=== PATIENT | male | born 1955 | race Caucasian/White ===

== ENCOUNTER 2023-08-12 16:38 | Inpatient (IN) | payer MEDICARE, OTHER ==
[~2023-08-12] VITALS: Ht 157.5 cm; Wt 78.0 kg
[2023-08-12] MEDS ORDERED: IPRATROPIUM 0.5MG/ALBUTEROL 2.5MG INH SOL UD 3ML (DUONEB) NEB ONE ×2 (17:25→17:30)
[2023-08-12] MEDS ORDERED: DOXY-443 (17:30)
[2023-08-12] MEDS ORDERED: PRED20TA (17:30)
[2023-08-12] MEDS ORDERED: ALBU8.5H (17:30)
[2023-08-12] MEDS ORDERED: IPRATROPIUM 0.5MG/ALBUTEROL 2.5MG INH SOL UD 3ML (DUONEB) NEB PRN (17:35)
[2023-08-12 17:36] LABS: BASO % 0.1 % (0.0-1.0); EOS % 0.2 % (0.0-3.0); HEMATOCRIT 42.5 % (42.0-52.0); HEMOGLOBIN 14.7 g/dl (13.5-17.5); LYMPH # 0.5 10^3/uL (1.5-5.0); LYMPH % 4.7 % (24.0-44.0); MEAN CORPUSCULAR HEMOGLOBIN 35.1 pg (27.0-33.0); MEAN CORPUSCULAR HGB CONC 34.6 g/dl (32.0-36.5); MEAN CORPUSCULAR VOLUME 101.4 fl (80.0-96.0); MONO # 1.4 10^3/uL (0.0-0.8); MONO % 14.7 % (2.0-8.0); NEUTROPHILS # 7.7 10^3/uL (1.5-8.5); NEUTROPHILS % 79.7 % (36.0-66.0); PLATELET COUNT, AUTOMATED 142 10^3/uL (150-450); RED BLOOD COUNT 4.19 10^6/uL (4.30-6.10); WHITE BLOOD COUNT 9.7 10^3/uL (4.0-10.0)
[2023-08-12 17:43] LABS: ABG BASE EXCESS -3.7 (-2.0-2.0); ABG HCO3 19.7 MMOL/L (22.0-26.0); ABG O2 SATURATION 95.6 % (95.0-99.0); ABG PARTIAL PRESSURE CO2 31.6 mmHg (35.0-45.0); ABG PARTIAL PRESSURE O2 78.3 mmHg (75.0-100.0); ABG STANDARD HCO3 21.4 MMOL/L. (22.0-26.0); ABG TOTAL CO2 20.7 MMOL/L (23.0-31.0); ABG pH (ARTERIAL) 7.413 UNITS (7.350-7.450)
[2023-08-12] MEDS: LEVALBUTEROL 1.25MG 0.5ML CONCENTRATE NEB NEB ONE (17:43)
[2023-08-12 17:49] LABS: ALBUMIN 3.1 G/DL (3.2-5.2); ALKALINE PHOSPHATASE 92 U/L (46-116); ALT/SGPT 40 U/L (7.0-40); AST/SGOT 39 U/L (<34); BILIRUBIN,DIRECT 0.6 MG/DL (<0.4); BILIRUBIN,TOTAL 1.1 MG/DL (0.3-1.2); BLOOD UREA NITROGEN 16 MG/DL (9-23); CALCIUM LEVEL 8.5 MG/DL (8.3-10.6); CARBON DIOXIDE LEVEL 22 MMOL/L (20-31); CHLORIDE LEVEL 96 MMOL/L (98-107); CK-MB VALUE MASS 7.5 NG/ML (<3.6); CPK CREATINE PHOSPHOKINASE 524 U/L (46-171); CREATININE FOR GFR 0.81 MG/DL (0.70-1.30); GLOMERULAR FILTRATION RATE > 60.0 (>49); GLUCOSE, FASTING 194 MG/DL (74-106); INR 1.37; MB/CK RELATIVE INDEX 1.43 (< OR =4); POTASSIUM SERUM 4.6 MMOL/L (3.5-5.1); PROTHROMBIN TIME 16.5 SECONDS (12.5-14.5); SODIUM LEVEL 125 MMOL/L (136-145); TOTAL PROTEIN 6.7 G/DL (5.7-8.2)
[2023-08-12 17:49] LABS: C REACTIVE PROTEIN QUANTITATIV 7.2 MG/DL (<1.0); MAGNESIUM LEVEL 2.1 MG/DL (1.8-2.4)
[2023-08-12 17:51] LABS: THYROID STIMULATING HORMONE 1.594 uIU/ML (0.55-4.78)
[2023-08-12 17:58] LABS: PROCALCITONIN 0.07 ng/ml
[2023-08-12] MEDS: ASPIRIN 81MG CHEW TABLET PO ONE (17:59)
[2023-08-12] MEDS: methylPREDNISolone 125MG 2ML VIAL IV ONE (18:00)
[2023-08-12] MEDS: NITROGLYCERIN 2% OINT 1 GM *U/D* PKT TOP ONE (18:00)
[2023-08-12] MEDS: FUROSEMIDE 40MG/4ML VIAL IV ONE (18:01)
[2023-08-12] MEDS: FOLIC ACID 1MG TAB PO ONE (18:46)
[2023-08-12] MEDS: THIAMINE 100 MG TAB PO ONE (18:46)
[2023-08-12] MEDS: MULTIVITAMINS/MINERALS THERAP 1 TAB PO ONE (18:46)
[2023-08-12 19:28] LABS: CK-MB VALUE MASS 7.6 NG/ML (<3.6)
[2023-08-12 19:30] LABS: MB/CK RELATIVE INDEX 1.49 (< OR =4)
[2023-08-12] MEDS: OSELTAMIVIR PHOSPHATE 75 MG CAP (TAMIFLU) PO ONE (20:58)
[2023-08-12] MEDS: cefTRIAXone SOD 1 GM in D5W MINI-BAG PLUS 50 ML IV ONE (20:59)
[2023-08-12] MEDS: AZITHROMYCIN INJ 500 MG, VIAL MATE ADAPTER 1 EACH in NS 250 ML IV ONE (20:59)
[2023-08-12] MEDS ORDERED: ALBU8.5H INH (22:12)
[2023-08-12] MEDS ORDERED: HOME MED LIST COMPLETE! XX SCH (22:15)
[2023-08-12] MEDS ORDERED: FUROSEMIDE 40MG/4ML VIAL IV PRN (23:25)
[2023-08-12] MEDS ORDERED: LORazepam 2 MG/ML 1ML VIAL IV PRN (23:35)
[2023-08-13] VITALS (7 sets, daily range): BP systolic 134–192; BP diastolic 84–109; TEMP 97.2–97.5; O2SAT 94–98
[2023-08-13 01:02] LABS: VENOUS BASE EXCESS -1.9 (-2.0-2.0); VENOUS HCO3 21.3 MMOL/L (23.0-27.0); VENOUS O2 SATURATION 98.6 % (60.0-80.0); VENOUS PARTIAL PRESSURE CO2 32.1 mmHg (38.0-50.0); VENOUS PARTIAL PRESSURE O2 133.3 mmHg (30.0-50.0); VENOUS PH 7.439 UNITS (7.330-7.430); VENOUS STANDARD HCO3 22.9 MMOL/L; VENOUS TOTAL CO2 22.2 MMOL/L (24.0-28.0)
[2023-08-13] MEDS: IPRATROPIUM 0.5MG/ALBUTEROL 2.5MG INH SOL UD 3ML (DUONEB) NEB SCH ×2 (02:00→11:54)
[2023-08-13 07:15] LABS: HEMATOCRIT 37.1 % (42.0-52.0); HEMOGLOBIN 13.1 g/dl (13.5-17.5); MEAN CORPUSCULAR HGB CONC 35.3 g/dl (32.0-36.5); MEAN CORPUSCULAR VOLUME 99.2 fl (80.0-96.0); PLATELET COUNT, AUTOMATED 114 10^3/uL (150-450); RED BLOOD COUNT 3.74 10^6/uL (4.30-6.10); WHITE BLOOD COUNT 4.2 10^3/uL (4.0-10.0)
[2023-08-13 07:40] LABS: BLOOD UREA NITROGEN 19 MG/DL (9-23); CALCIUM LEVEL 8.3 MG/DL (8.3-10.6); CARBON DIOXIDE LEVEL 25 MMOL/L (20-31); CHLORIDE LEVEL 98 MMOL/L (98-107); CREATININE FOR GFR 0.77 MG/DL (0.70-1.30); GLOMERULAR FILTRATION RATE > 60.0 (>49); GLUCOSE, FASTING 192 MG/DL (74-106); SODIUM LEVEL 129 MMOL/L (136-145)
[2023-08-13] MEDS: SYMBICORT 80/4.5MCG INHALER 6GM INH SCH (08:00)
[2023-08-13] MEDS ORDERED: ISOVUE-370 76% 100ML VIAL As Ordered ONE (08:21)
[2023-08-13] MEDS ORDERED: FUROSEMIDE 20MG/2ML VIAL IV SCH (09:00)
[2023-08-13] MEDS: ENOXAPARIN 40MG/0.4ML SYRINGE (J1650 PER 10MG) SC SCH (09:00)
[2023-08-13] MEDS: FUROSEMIDE 40MG/4ML VIAL IV SCH (09:07)
[2023-08-13] MEDS: FOLIC ACID 1MG TAB PO SCH (09:07)
[2023-08-13] MEDS: OSELTAMIVIR PHOSPHATE 75 MG CAP (TAMIFLU) PO SCH (09:08)
[2023-08-13] MEDS: DOCUSATE SODIUM 100MG CAPSULE PO SCH (09:08)
[2023-08-13] MEDS: THIAMINE 100 MG TAB PO SCH (09:08)
[2023-08-13] MEDS: MULTIVITAMINS/MINERALS THERAP 1 TAB PO SCH (09:08)
[2023-08-13] MEDS: LevoFLOXacin 750 MG TABLET PO SCH (12:30)
[2023-08-13] MEDS: methylPREDNISolone 40MG 1ML VIAL IV SCH (17:19)
[2023-08-14] VITALS (8 sets, daily range): BP systolic 164–188; BP diastolic 78–94; TEMP 97–98.1; O2SAT 92–98
[2023-08-14 07:24] LABS: HEMATOCRIT 36.2 % (42.0-52.0); LYMPH # 0.4 10^3/uL (1.5-5.0); LYMPH % 4.9 % (24.0-44.0); MEAN CORPUSCULAR HEMOGLOBIN 35.6 pg (27.0-33.0); MEAN CORPUSCULAR HGB CONC 35.9 g/dl (32.0-36.5); MEAN CORPUSCULAR VOLUME 99.2 fl (80.0-96.0); MONO # 0.9 10^3/uL (0.0-0.8); NEUTROPHILS # 6.2 10^3/uL (1.5-8.5); NEUTROPHILS % 82.4 % (36.0-66.0); PLATELET COUNT, AUTOMATED 123 10^3/uL (150-450); RED BLOOD COUNT 3.65 10^6/uL (4.30-6.10); WHITE BLOOD COUNT 7.5 10^3/uL (4.0-10.0)
[2023-08-14 07:47] LABS: BLOOD UREA NITROGEN 22 MG/DL (9-23); CALCIUM LEVEL 8.4 MG/DL (8.3-10.6); CARBON DIOXIDE LEVEL 25 MMOL/L (20-31); CHLORIDE LEVEL 94 MMOL/L (98-107); CREATININE FOR GFR 0.82 MG/DL (0.70-1.30); GLOMERULAR FILTRATION RATE > 60.0 (>49); GLUCOSE, FASTING 201 MG/DL (74-106); POTASSIUM SERUM 3.4 MMOL/L (3.5-5.1); SODIUM LEVEL 127 MMOL/L (136-145)
[2023-08-14] MEDS: amLODIPine 5 MG TAB PO SCH (12:11)
[2023-08-14] MEDS: POTASSIUM CHLORIDE 10MEQ SR TABLET PO SCH (12:11)
[2023-08-15 05:22] VITALS: BP 152/89; TEMP 97.7; O2SAT 90
[2023-08-15 08:00] LABS: BASO % 0.1 % (0.0-1.0); HEMATOCRIT 37.2 % (42.0-52.0); HEMOGLOBIN 13.3 g/dl (13.5-17.5); LYMPH # 0.4 10^3/uL (1.5-5.0); LYMPH % 3.4 % (24.0-44.0); MEAN CORPUSCULAR HEMOGLOBIN 35.6 pg (27.0-33.0); MEAN CORPUSCULAR HGB CONC 35.8 g/dl (32.0-36.5); MEAN CORPUSCULAR VOLUME 99.5 fl (80.0-96.0); MONO # 0.7 10^3/uL (0.0-0.8); MONO % 6.7 % (2.0-8.0); NEUTROPHILS # 9.7 10^3/uL (1.5-8.5); NEUTROPHILS % 89.2 % (36.0-66.0); PLATELET COUNT, AUTOMATED 131 10^3/uL (150-450); RED BLOOD COUNT 3.74 10^6/uL (4.30-6.10); WHITE BLOOD COUNT 10.9 10^3/uL (4.0-10.0)
[2023-08-15 08:21] LABS: BLOOD UREA NITROGEN 23 MG/DL (9-23); CALCIUM LEVEL 8.6 MG/DL (8.3-10.6); CARBON DIOXIDE LEVEL 26 MMOL/L (20-31); CHLORIDE LEVEL 95 MMOL/L (98-107); CREATININE FOR GFR 0.85 MG/DL (0.70-1.30); GLOMERULAR FILTRATION RATE > 60.0 (>49); GLUCOSE, FASTING 263 MG/DL (74-106); POTASSIUM SERUM 3.7 MMOL/L (3.5-5.1); SODIUM LEVEL 128 MMOL/L (136-145)
[2023-08-15] MEDS: METOPROLOL TART 25 MG TABLET PO SCH (09:00)
[2023-08-15] MEDS: APIXABAN 5 MG TAB (ELIQUIS) PO SCH (09:00)
[2023-08-15 14:00] VITALS: BP 161/88; TEMP 97.9; O2SAT 96
[2023-08-15 21:11] VITALS: BP 163/89; TEMP 97.9; O2SAT 92
[2023-08-16] VITALS (20 sets, daily range): BP systolic 133–185; BP diastolic 68–93; TEMP 97.4–101.1; O2SAT 85–99
[2023-08-16] MEDS: METOPROLOL TART 25 MG TABLET PO SCH (00:01)
[2023-08-16 08:14] LABS: BASO % 0.1 % (0.0-1.0); HEMATOCRIT 42.6 % (42.0-52.0); HEMOGLOBIN 14.4 g/dl (13.5-17.5); MEAN CORPUSCULAR HEMOGLOBIN 34.4 pg (27.0-33.0); MEAN CORPUSCULAR HGB CONC 33.8 g/dl (32.0-36.5); MEAN CORPUSCULAR VOLUME 101.7 fl (80.0-96.0); MONO # 0.7 10^3/uL (0.0-0.8); MONO % 5.5 % (2.0-8.0); NEUTROPHILS # 10.8 10^3/uL (1.5-8.5); NEUTROPHILS % 85.6 % (36.0-66.0); PLATELET COUNT, AUTOMATED 143 10^3/uL (150-450); RED BLOOD COUNT 4.19 10^6/uL (4.30-6.10); WHITE BLOOD COUNT 12.6 10^3/uL (4.0-10.0)
[2023-08-16] MEDS: IPRATROPIUM 0.5MG/ALBUTEROL 2.5MG INH SOL UD 3ML (DUONEB) NEB PRN ×2 (08:20→12:48)
[2023-08-16 08:27] LABS: HEMOGLOBIN A1c 7.2 % (4.0-6.0)
[2023-08-16 08:44] LABS: BLOOD UREA NITROGEN 25 MG/DL (9-23); CALCIUM LEVEL 8.6 MG/DL (8.3-10.6); CARBON DIOXIDE LEVEL 32 MMOL/L (20-31); CHLORIDE LEVEL 96 MMOL/L (98-107); CREATININE FOR GFR 0.98 MG/DL (0.70-1.30); GLOMERULAR FILTRATION RATE > 60.0 (>49); GLUCOSE, FASTING 178 MG/DL (74-106); POTASSIUM SERUM 3.9 MMOL/L (3.5-5.1); SODIUM LEVEL 131 MMOL/L (136-145)
[2023-08-16] MEDS: methylPREDNISolone 40MG 1ML VIAL IV SCH (09:03)
[2023-08-16 09:43] LABS: ABG BASE EXCESS 2.5 (-2.0-2.0); ABG O2 SATURATION 86.1 % (95.0-99.0); ABG STANDARD HCO3 26.4 MMOL/L. (22.0-26.0); ABG TOTAL CO2 26.1 MMOL/L (23.0-31.0); ABG pH (ARTERIAL) 7.498 UNITS (7.350-7.450)
[2023-08-16 09:45] LABS: ABG PARTIAL PRESSURE O2 48.3 mmHg (75.0-100.0)
[2023-08-16] MEDS: ACETAMINOPHEN TAB 650MG DOSE (2X325MG) PO PRN (11:09)
[2023-08-16] MEDS: methylPREDNISolone 125MG 2ML VIAL IV ONE (12:03)
[2023-08-16] MEDS: METOPROLOL TART 50 MG TAB PO SCH (12:07)
[2023-08-16] MEDS: BUDESONIDE 0.25 MG/2 ML INHALATION SUSPENSION INH SCH (13:47)
[2023-08-16] MEDS ORDERED: IPRATROPIUM 0.5MG/ALBUTEROL 2.5MG INH SOL UD 3ML (DUONEB) NEB SCH (14:00)
[2023-08-16] MEDS: FUROSEMIDE injection 250 MG in D5W 225 ML IV SCH (14:07)
[2023-08-16] MEDS: IPRATROPIUM 0.5MG/ALBUTEROL 2.5MG INH SOL UD 3ML (DUONEB) NEB SCH (16:50)
[2023-08-17] VITALS (39 sets, daily range): BP systolic 121–150; BP diastolic 69–90; TEMP 97.3–98.6; O2SAT 89–99
[2023-08-17 05:19] LABS: BASO % 0.1 % (0.0-1.0); HEMATOCRIT 37.9 % (42.0-52.0); HEMOGLOBIN 13.3 g/dl (13.5-17.5); LYMPH # 0.3 10^3/uL (1.5-5.0); LYMPH % 4.2 % (24.0-44.0); MEAN CORPUSCULAR HEMOGLOBIN 34.8 pg (27.0-33.0); MEAN CORPUSCULAR HGB CONC 35.1 g/dl (32.0-36.5); MEAN CORPUSCULAR VOLUME 99.2 fl (80.0-96.0); MONO # 0.4 10^3/uL (0.0-0.8); MONO % 6.3 % (2.0-8.0); NEUTROPHILS % 88.8 % (36.0-66.0); PLATELET COUNT, AUTOMATED 120 10^3/uL (150-450); RED BLOOD COUNT 3.82 10^6/uL (4.30-6.10); WHITE BLOOD COUNT 6.7 10^3/uL (4.0-10.0)
[2023-08-17] MEDS: methylPREDNISolone 40MG 1ML VIAL IV SCH (05:34)
[2023-08-17 06:05] LABS: BLOOD UREA NITROGEN 31 MG/DL (9-23); CALCIUM LEVEL 7.9 MG/DL (8.3-10.6); CARBON DIOXIDE LEVEL 31 MMOL/L (20-31); CHLORIDE LEVEL 98 MMOL/L (98-107); CREATININE FOR GFR 0.98 MG/DL (0.70-1.30); GLOMERULAR FILTRATION RATE > 60.0 (>49); GLUCOSE, FASTING 327 MG/DL (74-106); POTASSIUM SERUM 3.2 MMOL/L (3.5-5.1); SODIUM LEVEL 130 MMOL/L (136-145)
[2023-08-17 06:28] LABS: ABG BASE EXCESS 3.3 (-2.0-2.0); ABG O2 SATURATION 98.5 % (95.0-99.0); ABG PARTIAL PRESSURE CO2 33.7 mmHg (35.0-45.0); ABG PARTIAL PRESSURE O2 116.7 mmHg (75.0-100.0); ABG STANDARD HCO3 27.4 MMOL/L. (22.0-26.0); ABG pH (ARTERIAL) 7.505 UNITS (7.350-7.450)
[2023-08-17] MEDS ORDERED: GLUCAGON INJ 1MG VIAL SC PRN (07:55)
[2023-08-17] MEDS ORDERED: DEXTROSE 50% 50ML SYRINGE IV PRN (07:55)
[2023-08-17] MEDS ORDERED: GLUCOSE 4GM CHEW TABLET PO PRN (07:55)
[2023-08-17] MEDS: LEVEMIR (INSULIN DETEMIR) 1 UNITS/0.01ML SC SCH (08:38)
[2023-08-17] MEDS: POTASSIUM CHLORIDE 10MEQ SR TABLET PO SCH (08:38)
[2023-08-17] MEDS: FUROSEMIDE 100MG/10ML VIAL IV SCH (08:38)
[2023-08-17] MEDS: IPRATROPIUM 0.5MG/ALBUTEROL 2.5MG INH SOL UD 3ML (DUONEB) NEB SCH (11:18)
[2023-08-17] MEDS: INSULIN LISPRO (NovoLOG) PER UNIT SC SCH ×2 (11:54→21:05)
[2023-08-18] VITALS (28 sets, daily range): BP systolic 122–165; BP diastolic 72–96; TEMP 97.8–99.7; O2SAT 88–99
[2023-08-18 05:40] LABS: BASO % 0.1 % (0.0-1.0); HEMATOCRIT 38.1 % (42.0-52.0); HEMOGLOBIN 13.1 g/dl (13.5-17.5); LYMPH # 0.4 10^3/uL (1.5-5.0); LYMPH % 4.1 % (24.0-44.0); MEAN CORPUSCULAR HEMOGLOBIN 34.2 pg (27.0-33.0); MEAN CORPUSCULAR HGB CONC 34.4 g/dl (32.0-36.5); MEAN CORPUSCULAR VOLUME 99.5 fl (80.0-96.0); MONO # 0.4 10^3/uL (0.0-0.8); MONO % 4.1 % (2.0-8.0); NEUTROPHILS % 91.4 % (36.0-66.0); PLATELET COUNT, AUTOMATED 109 10^3/uL (150-450); RED BLOOD COUNT 3.83 10^6/uL (4.30-6.10); WHITE BLOOD COUNT 8.8 10^3/uL (4.0-10.0)
[2023-08-18 06:12] LABS: BLOOD UREA NITROGEN 30 MG/DL (9-23); CALCIUM LEVEL 8.2 MG/DL (8.3-10.6); CARBON DIOXIDE LEVEL 32 MMOL/L (20-31); CHLORIDE LEVEL 100 MMOL/L (98-107); CREATININE FOR GFR 0.83 MG/DL (0.70-1.30); GLOMERULAR FILTRATION RATE > 60.0 (>49); GLUCOSE, FASTING 242 MG/DL (74-106); POTASSIUM SERUM 3.4 MMOL/L (3.5-5.1); SODIUM LEVEL 136 MMOL/L (136-145)
[2023-08-18] MEDS ORDERED: ELIQ5TAB PO (18:56)
[2023-08-19] VITALS (11 sets, daily range): BP systolic 142–159; BP diastolic 72–84; TEMP 97.9–98.5; O2SAT 90–96
[2023-08-19 05:46] LABS: BASO % 0.1 % (0.0-1.0); HEMATOCRIT 38.9 % (42.0-52.0); HEMOGLOBIN 13.4 g/dl (13.5-17.5); LYMPH # 0.4 10^3/uL (1.5-5.0); LYMPH % 5.2 % (24.0-44.0); MEAN CORPUSCULAR HEMOGLOBIN 34.7 pg (27.0-33.0); MEAN CORPUSCULAR HGB CONC 34.4 g/dl (32.0-36.5); MEAN CORPUSCULAR VOLUME 100.8 fl (80.0-96.0); MONO # 0.4 10^3/uL (0.0-0.8); MONO % 4.8 % (2.0-8.0); NEUTROPHILS # 6.8 10^3/uL (1.5-8.5); NEUTROPHILS % 89.2 % (36.0-66.0); PLATELET COUNT, AUTOMATED 114 10^3/uL (150-450); RED BLOOD COUNT 3.86 10^6/uL (4.30-6.10); WHITE BLOOD COUNT 7.6 10^3/uL (4.0-10.0)
[2023-08-19 06:16] LABS: BLOOD UREA NITROGEN 33 MG/DL (9-23); CALCIUM LEVEL 8.1 MG/DL (8.3-10.6); CARBON DIOXIDE LEVEL 32 MMOL/L (20-31); CHLORIDE LEVEL 98 MMOL/L (98-107); GLOMERULAR FILTRATION RATE > 60.0 (>49); GLUCOSE, FASTING 239 MG/DL (74-106); POTASSIUM SERUM 3.5 MMOL/L (3.5-5.1); SODIUM LEVEL 135 MMOL/L (136-145)
[2023-08-20] VITALS (9 sets, daily range): BP systolic 140–175; BP diastolic 77–93; TEMP 96.7–97.8; O2SAT 86–97
[2023-08-20 05:34] LABS: BASO % 0.1 % (0.0-1.0); HEMATOCRIT 40.3 % (42.0-52.0); HEMOGLOBIN 13.8 g/dl (13.5-17.5); LYMPH # 0.8 10^3/uL (1.5-5.0); LYMPH % 11.9 % (24.0-44.0); MEAN CORPUSCULAR HEMOGLOBIN 34.5 pg (27.0-33.0); MEAN CORPUSCULAR HGB CONC 34.2 g/dl (32.0-36.5); MEAN CORPUSCULAR VOLUME 100.8 fl (80.0-96.0); MONO # 0.5 10^3/uL (0.0-0.8); MONO % 7.3 % (2.0-8.0); NEUTROPHILS # 5.4 10^3/uL (1.5-8.5); PLATELET COUNT, AUTOMATED 110 10^3/uL (150-450); WHITE BLOOD COUNT 6.7 10^3/uL (4.0-10.0)
[2023-08-20 05:59] LABS: BLOOD UREA NITROGEN 30 MG/DL (9-23); CALCIUM LEVEL 8.3 MG/DL (8.3-10.6); CARBON DIOXIDE LEVEL 31 MMOL/L (20-31); CHLORIDE LEVEL 100 MMOL/L (98-107); CREATININE FOR GFR 0.78 MG/DL (0.70-1.30); GLOMERULAR FILTRATION RATE > 60.0 (>49); GLUCOSE, FASTING 227 MG/DL (74-106); SODIUM LEVEL 137 MMOL/L (136-145)
[2023-08-20] MEDS: LOSARTAN 50MG TABLET PO ONE (10:30)
[2023-08-20] MEDS ORDERED: LANC30MI XX (11:05)
[2023-08-20] MEDS ORDERED: INSU100I48 SQ (11:05)
[2023-08-20] MEDS ORDERED: PEN-308 SC (11:05)
[2023-08-20] MEDS ORDERED: BLOOKIT21 XX (11:05)
[2023-08-20] MEDS ORDERED: ALCOPAD25 TOP (11:05)
[2023-08-20] MEDS ORDERED: GLUC1TES2 XX (11:05)
[2023-08-20] MEDS ORDERED: INSULIN LISPRO (NovoLOG) PER UNIT SC STA (11:24)
[2023-08-20] MEDS: LEVEMIR (INSULIN DETEMIR) 1 UNITS/0.01ML SC ONE (11:26)
[2023-08-20 12:46] LABS: ACETONE/KETONE 0.11 MMOL/L (0.02-0.27)
[2023-08-20] MEDS: INSULIN LISPRO (NovoLOG) PER UNIT SC STA (12:48)
[2023-08-20 12:55] LABS: BLOOD UREA NITROGEN 31 MG/DL (9-23); CALCIUM LEVEL 8.1 MG/DL (8.3-10.6); CARBON DIOXIDE LEVEL 30 MMOL/L (20-31); CHLORIDE LEVEL 98 MMOL/L (98-107); CREATININE FOR GFR 0.78 MG/DL (0.70-1.30); GLOMERULAR FILTRATION RATE > 60.0 (>49); GLUCOSE, FASTING 407 MG/DL (74-106); POTASSIUM SERUM 3.9 MMOL/L (3.5-5.1); SODIUM LEVEL 134 MMOL/L (136-145)
[2023-08-20] MEDS ORDERED: INSU100I16 SQ (13:52)
[2023-08-20] MEDS ORDERED: ATOR40TA75 PO (13:56)
[2023-08-20 14:41] LABS: CHOLESTEROL RISK RATIO 2.7 (<5); HDL CHOLESTEROL 50.2 MG/DL (>40); LDL CHOLESTEROL 59.6 MG/DL (<100); NON-HDL-C 85.8 MG/DL
[2023-08-20] MEDS: INSULIN LISPRO (NovoLOG) PER UNIT SC ONE (15:05)
[2023-08-20 17:27] LABS: BLOOD UREA NITROGEN 33 MG/DL (9-23); CALCIUM LEVEL 8.5 MG/DL (8.3-10.6); CARBON DIOXIDE LEVEL 29 MMOL/L (20-31); CHLORIDE LEVEL 101 MMOL/L (98-107); CREATININE FOR GFR 0.78 MG/DL (0.70-1.30); GLOMERULAR FILTRATION RATE > 60.0 (>49); GLUCOSE, FASTING 200 MG/DL (74-106); POTASSIUM SERUM 3.4 MMOL/L (3.5-5.1); SODIUM LEVEL 135 MMOL/L (136-145)
[2023-08-20] MEDS: methylPREDNISolone 40MG 1ML VIAL IV SCH (17:44)
[2023-08-20] MEDS: POTASSIUM CHLORIDE 10MEQ SR TABLET PO ONE (18:12)
[2023-08-20] MEDS: ATORVASTATIN 20 MG TAB PO SCH (20:44)
[2023-08-20] MEDS: LEVEMIR (INSULIN DETEMIR) 1 UNITS/0.01ML SC SCH (20:44)
[2023-08-21] VITALS (8 sets, daily range): BP systolic 150–168; BP diastolic 81–99; TEMP 97–98.1; O2SAT 92–95
[2023-08-21] MEDS: LEVEMIR (INSULIN DETEMIR) 1 UNITS/0.01ML SC SCH ×2 (07:57→20:25)
[2023-08-21 10:13] LABS: BASO % 0.1 % (0.0-1.0); HEMATOCRIT 38.1 % (42.0-52.0); HEMOGLOBIN 13.2 g/dl (13.5-17.5); LYMPH # 0.5 10^3/uL (1.5-5.0); LYMPH % 6.9 % (24.0-44.0); MEAN CORPUSCULAR HGB CONC 34.6 g/dl (32.0-36.5); MEAN CORPUSCULAR VOLUME 101.1 fl (80.0-96.0); MONO # 0.4 10^3/uL (0.0-0.8); MONO % 5.1 % (2.0-8.0); NEUTROPHILS # 6.7 10^3/uL (1.5-8.5); NEUTROPHILS % 87.2 % (36.0-66.0); PLATELET COUNT, AUTOMATED 132 10^3/uL (150-450); RED BLOOD COUNT 3.77 10^6/uL (4.30-6.10); WHITE BLOOD COUNT 7.6 10^3/uL (4.0-10.0)
[2023-08-21] MEDS: atenoloL 50 MG TAB PO SCH (10:26)
[2023-08-21] MEDS: FUROSEMIDE 40 MG TAB PO SCH ×2 (10:27→17:13)
[2023-08-21] MEDS: LOSARTAN 25 MG TAB PO SCH (10:27)
[2023-08-21 10:56] LABS: ALBUMIN 2.2 G/DL (3.2-5.2); BLOOD UREA NITROGEN 31 MG/DL (9-23); CALCIUM LEVEL 8.2 MG/DL (8.3-10.6); CARBON DIOXIDE LEVEL 30 MMOL/L (20-31); CHLORIDE LEVEL 100 MMOL/L (98-107); CREATININE FOR GFR 0.67 MG/DL (0.70-1.30); GLOMERULAR FILTRATION RATE > 60.0 (>49); GLUCOSE, FASTING 316 MG/DL (74-106); POTASSIUM SERUM 4.2 MMOL/L (3.5-5.1); SODIUM LEVEL 134 MMOL/L (136-145)
[2023-08-21] MEDS: LOSARTAN 25 MG TAB PO ONE (13:34)
[2023-08-21 19:02] LABS: BLOOD UREA NITROGEN 31 MG/DL (9-23); CALCIUM LEVEL 8.6 MG/DL (8.3-10.6); CARBON DIOXIDE LEVEL 29 MMOL/L (20-31); CHLORIDE LEVEL 101 MMOL/L (98-107); CREATININE FOR GFR 0.73 MG/DL (0.70-1.30); GLOMERULAR FILTRATION RATE > 60.0 (>49); GLUCOSE, FASTING 380 MG/DL (74-106); POTASSIUM SERUM 4.4 MMOL/L (3.5-5.1); SODIUM LEVEL 133 MMOL/L (136-145)
[2023-08-21] MEDS: LOSARTAN 50MG TABLET PO SCH (20:18)
[2023-08-22 05:23] LABS: BASO % 0.1 % (0.0-1.0); EOS % 0.2 % (0.0-3.0); HEMATOCRIT 39.5 % (42.0-52.0); HEMOGLOBIN 13.4 g/dl (13.5-17.5); LYMPH # 1.7 10^3/uL (1.5-5.0); LYMPH % 15.9 % (24.0-44.0); MEAN CORPUSCULAR HEMOGLOBIN 34.4 pg (27.0-33.0); MEAN CORPUSCULAR HGB CONC 33.9 g/dl (32.0-36.5); MEAN CORPUSCULAR VOLUME 101.3 fl (80.0-96.0); MONO # 0.8 10^3/uL (0.0-0.8); MONO % 7.7 % (2.0-8.0); NEUTROPHILS # 7.9 10^3/uL (1.5-8.5); NEUTROPHILS % 75.4 % (36.0-66.0); PLATELET COUNT, AUTOMATED 148 10^3/uL (150-450); WHITE BLOOD COUNT 10.5 10^3/uL (4.0-10.0)
[2023-08-22 05:58] LABS: BLOOD UREA NITROGEN 27 MG/DL (9-23); CALCIUM LEVEL 8.1 MG/DL (8.3-10.6); CARBON DIOXIDE LEVEL 31 MMOL/L (20-31); CHLORIDE LEVEL 105 MMOL/L (98-107); CREATININE FOR GFR 0.88 MG/DL (0.70-1.30); GLOMERULAR FILTRATION RATE > 60.0 (>49); GLUCOSE, FASTING 186 MG/DL (74-106); POTASSIUM SERUM 4.1 MMOL/L (3.5-5.1); SODIUM LEVEL 139 MMOL/L (136-145)
[2023-08-22 06:00] VITALS: BP 147/91; TEMP 97.5; O2SAT 95
[2023-08-22 06:42] VITALS: BP 148/100; TEMP 97.6; O2SAT 95
[2023-08-22 08:18] VITALS: BP 153/92
[2023-08-22] MEDS: predniSONE 20 MG TAB PO SCH (08:23)
[2023-08-22 08:25] VITALS: BP 153/92
[2023-08-22] MEDS: atenoloL 50 MG TAB PO SCH (08:25)
[2023-08-22] MEDS ORDERED: METF500T13 PO (10:53)
[2023-08-22] MEDS ORDERED: GLIP5TAB17 PO (10:53)
[2023-08-22] MEDS ORDERED: TORS20TA2 PO (10:53)
[2023-08-22] MEDS ORDERED: ATEN50TA2 PO (10:53)
[2023-08-22] MEDS ORDERED: IPRA0.00 NEB (10:53)
[2023-08-22] MEDS ORDERED: PRED10TA2 PO (10:53)
[2023-08-22] MEDS ORDERED: LISI10TA22 PO (10:53)
[2023-08-22] MEDS ORDERED: POTA-151 PO (10:53)
[2023-08-23] MEDS ORDERED: NEBU1EAC78 MC (13:30)
== END 2023-08-22 12:30 | disposition home or self-care (01) | DRG 291 ==
LOC: M ED 16:38 → M ED INP 23:14 → ENRESERVTM 08-13 03:59 → ENRESERVDT 08-13 03:59 → M MS5PR 08-13 05:01 → M PCU 08-16 10:23 → M MSPAV 08-20 22:55
PROVIDERS: ADMIT Family Medicine; ATTEND Internal Medicine Nephrology
PROC: B246ZZZ Ultrasonography of Right and Left Heart (ICD-10-PCS; principal; 2023-08-18)
DX: I11.0 Hypertensive heart disease with heart failure (principal); J96.01 Acute respiratory failure with hypoxia; I50.33 Acute on chronic diastolic (congestive) heart failure; J10.00 Influenza due to other identified influenza virus with unspecified type of pneumonia; J12.9 Viral pneumonia, unspecified; J15.9 Unspecified bacterial pneumonia; J44.0 Chronic obstructive pulmonary disease with (acute) lower respiratory infection; J44.1 Chronic obstructive pulmonary disease with (acute) exacerbation; E87.1 Hypo-osmolality and hyponatremia; J98.11 Atelectasis; F10.10 Alcohol abuse, uncomplicated; D69.6 Thrombocytopenia, unspecified; I48.91 Unspecified atrial fibrillation; F17.210 Nicotine dependence, cigarettes, uncomplicated; I16.0 Hypertensive urgency; E11.65 Type 2 diabetes mellitus with hyperglycemia; I27.20 Pulmonary hypertension, unspecified; I50.810 Right heart failure, unspecified

== ENCOUNTER 2023-10-05 11:34 | Emergency (ER) | payer MEDICARE, OTHER ==
[~2023-10-05] VITALS: Ht 162.6 cm; Wt 73.0 kg
[~2023-10-05 11:34] MED LIST: ALBU8.5H; ALBU8.5H INH; ALCOPAD25 TOP; ATEN50TA2 PO; ATOR40TA75 PO; BLOOKIT21 XX; DOXY-323; ELIQ5TAB PO; GLIP5TAB17 PO; GLUC1TES2 XX; INSU100I16 SQ; INSU100I48 SQ; IPRA0.00 NEB; LANC30MI XX; LISI10TA22 PO; METF500T13 PO; NEBU1EAC78 MC; PEN-308 SC; POTA-151 PO; PRED10TA2 PO; PRED20TA; TORS20TA2 PO
[2023-10-05 12:35] LABS: BASO % 0.2 % (0.0-1.0); EOS % 0.3 % (0.0-3.0); HEMATOCRIT 26.4 % (42.0-52.0); HEMOGLOBIN 9.1 g/dl (13.5-17.5); LYMPH # 1.1 10^3/uL (1.5-5.0); LYMPH % 8.2 % (24.0-44.0); MEAN CORPUSCULAR HEMOGLOBIN 34.2 pg (27.0-33.0); MEAN CORPUSCULAR HGB CONC 34.5 g/dl (32.0-36.5); MEAN CORPUSCULAR VOLUME 99.2 fl (80.0-96.0); MONO # 1.4 10^3/uL (0.0-0.8); MONO % 10.5 % (2.0-8.0); NEUTROPHILS # 10.6 10^3/uL (1.5-8.5); NEUTROPHILS % 80.2 % (36.0-66.0); PLATELET COUNT, AUTOMATED 275 10^3/uL (150-450); RED BLOOD COUNT 2.66 10^6/uL (4.30-6.10); WHITE BLOOD COUNT 13.2 10^3/uL (4.0-10.0)
[2023-10-05 12:46] LABS: INR 1.96; PROTHROMBIN TIME 21.7 SECONDS (12.5-14.5)
[2023-10-05 12:58] LABS: ERYTHROCYTE SEDIMENTATION RATE 56 mm/hr (0-20)
[2023-10-05 13:04] LABS: BLOOD UREA NITROGEN 30 MG/DL (9-23); CALCIUM LEVEL 9.1 MG/DL (8.3-10.6); CARBON DIOXIDE LEVEL 23 MMOL/L (20-31); CHLORIDE LEVEL 101 MMOL/L (98-107); CREATININE FOR GFR 1.14 MG/DL (0.70-1.30); GLOMERULAR FILTRATION RATE > 60.0 (>49); GLUCOSE, FASTING 132 MG/DL (74-106); SODIUM LEVEL 132 MMOL/L (136-145)
[2023-10-05] MEDS: ceFAZolin SOD 2 GM in IV 1 EA IV ONE (15:14)
[2023-10-05] MEDS: ACETAMINOPHEN 500 MG TAB PO ONE (15:20)
[2023-10-05] MEDS ORDERED: ISOVUE-370 76% 100ML VIAL As Ordered ONE (15:54)
[2023-10-05] MEDS: ASPIRIN 81MG CHEW TABLET PO ONE (16:35)
[2023-10-05] MEDS ORDERED: HEPARIN DRIP 25,000 UNITS in IV 1 EA IV SCH (16:40)
[2023-10-05] MEDS: ATORVASTATIN 20 MG TAB PO SCH (17:58)
[2023-10-05 18:34] VITALS: TEMP 97.4
[2023-10-05 19:05] VITALS: BP 104/48; O2SAT 100
== END 2023-10-05 19:12 | disposition short-term general hospital (02) ==
LOC: M ED 11:34
DX: R60.0 Localized edema (principal); I73.9 Peripheral vascular disease, unspecified; L03.116 Cellulitis of left lower limb; E11.9 Type 2 diabetes mellitus without complications; I10 Essential (primary) hypertension; F17.200 Nicotine dependence, unspecified, uncomplicated; Z86.74 Personal history of sudden cardiac arrest; Z86.79 Personal history of other diseases of the circulatory system; Z79.01 Long term (current) use of anticoagulants; Z79.52 Long term (current) use of systemic steroids; Z79.4 Long term (current) use of insulin; Z79.811 Long term (current) use of aromatase inhibitors; Z79.899 Other long term (current) drug therapy
CPT/HCPCS: 71046; 75635; 80048; 83605; 83880; 85025; 85610; 85652; 85730; 86140; 87040; 93971; 96374; 99284; J0690; Q9967

== ENCOUNTER → 2024-01-23 | Outpatient (CLI) | payer OTHER ==
[2024-01-23 11:04] LABS: BASO % 0.3 % (0.0-1.0); EOS # 0.2 10^3/uL (0.0-0.5); EOS % 2.5 % (0.0-3.0); HEMATOCRIT 32.8 % (42.0-52.0); HEMOGLOBIN 11.1 g/dl (13.5-17.5); LYMPH # 1.5 10^3/uL (1.5-5.0); LYMPH % 25.3 % (24.0-44.0); MEAN CORPUSCULAR HEMOGLOBIN 31.5 pg (27.0-33.0); MEAN CORPUSCULAR HGB CONC 33.8 g/dl (32.0-36.5); MEAN CORPUSCULAR VOLUME 93.2 fl (80.0-96.0); MONO # 0.9 10^3/uL (0.0-0.8); MONO % 14.5 % (2.0-8.0); NEUTROPHILS # 3.4 10^3/uL (1.5-8.5); NEUTROPHILS % 57.1 % (36.0-66.0); PLATELET COUNT, AUTOMATED 181 10^3/uL (150-450); RED BLOOD COUNT 3.52 10^6/uL (4.30-6.10); WHITE BLOOD COUNT 5.9 10^3/uL (4.0-10.0)
[2024-01-23 11:33] LABS: ALBUMIN 3.4 G/DL (3.2-5.2); ALKALINE PHOSPHATASE 85 U/L (46-116); ALT/SGPT 12 U/L (7.0-40); AST/SGOT 13 U/L (<34); BILIRUBIN,TOTAL 0.5 MG/DL (0.3-1.2); BLOOD UREA NITROGEN 10 MG/DL (9-23); CALCIUM LEVEL 9.3 MG/DL (8.3-10.6); CARBON DIOXIDE LEVEL 27 MMOL/L (20-31); CHLORIDE LEVEL 99 MMOL/L (98-107); CHOLESTEROL LEVEL 101 MG/DL (<200); CHOLESTEROL RISK RATIO 2.77 (<5); CREATININE FOR GFR 0.74 MG/DL (0.70-1.30); GLOMERULAR FILTRATION RATE > 60.0 (>49); GLUCOSE, FASTING 90 MG/DL (74-106); HDL CHOLESTEROL 36.4 MG/DL (>40); LDL CHOLESTEROL 44.6 MG/DL (<100); NON-HDL-C 64.6 MG/DL; POTASSIUM SERUM 4.5 MMOL/L (3.5-5.1); SODIUM LEVEL 128 MMOL/L (136-145); TOTAL PROTEIN 7.1 G/DL (5.7-8.2); TRIGLYCERIDES LEVEL 100 MG/DL (<150)
[2024-01-23 11:35] LABS: MAU/CREAT RATIO 12.1 MCG/MG (0.0-30.0)
[2024-01-23 11:55] LABS: HEMOGLOBIN A1c 5.9 % (4.0-6.0)
== END ==
LOC: M LAB 10:22
PROVIDERS: ATTEND Registered Nurse
DX: I10 Essential (primary) hypertension (principal); E78.2 Mixed hyperlipidemia; E11.69 Type 2 diabetes mellitus with other specified complication

== ENCOUNTER 2024-02-18 16:00 | Outpatient (RCR) | payer OTHER | END 2024-02-23 | LOC: M PT 16:00 | PROVIDERS: ATTEND Registered Nurse | DX: Z89.612 Acquired absence of left leg above knee (principal) ==

== ENCOUNTER 2024-03-24 13:52 | Outpatient (RCR) | payer OTHER ==
[~2024-03-24 13:52] MED LIST changes: -DOXY-323; +DOXY-441
== END 2024-03-25 ==
LOC: M PT 13:52
PROVIDERS: ATTEND Registered Nurse
DX: Z89.612 Acquired absence of left leg above knee (principal)

== ENCOUNTER → 2024-04-19 | Outpatient (CLI) | payer OTHER ==
[2024-04-19 18:03] LABS: ALBUMIN 3.2 G/DL (3.2-5.2); ALKALINE PHOSPHATASE 98 U/L (40-129); ALT/SGPT 24 U/L (7.0-40); AST/SGOT 33 U/L (<34); BILIRUBIN,TOTAL 0.6 MG/DL (0.3-1.2); BLOOD UREA NITROGEN 18 MG/DL (9-23); CALCIUM LEVEL 8.6 MG/DL (8.3-10.6); CARBON DIOXIDE LEVEL 21 MMOL/L (20-31); CHLORIDE LEVEL 98 MMOL/L (98-107); CREATININE FOR GFR 1.06 MG/DL (0.70-1.30); GLOMERULAR FILTRATION RATE > 60.0 (>49); GLUCOSE, FASTING 109 MG/DL (74-106); POTASSIUM SERUM 4.2 MMOL/L (3.5-5.1); SODIUM LEVEL 130 MMOL/L (136-145); TOTAL PROTEIN 7.6 G/DL (5.7-8.2)
== END ==
LOC: M LAB 16:56
PROVIDERS: ATTEND Registered Nurse
DX: I10 Essential (primary) hypertension (principal); E78.2 Mixed hyperlipidemia

== ENCOUNTER 2024-04-21 14:28 | Outpatient (RCR) | payer OTHER | END 2024-04-24 | LOC: M PT 14:28 | PROVIDERS: ATTEND Registered Nurse | DX: Z89.612 Acquired absence of left leg above knee (principal); R53.1 Weakness ==

== ENCOUNTER → 2024-05-03 | Outpatient (CLI) | payer OTHER | LOC: M RAD 16:49 | PROVIDERS: ATTEND Registered Nurse | DX: I51.7 Cardiomegaly (principal); R06.02 Shortness of breath ==

== ENCOUNTER 2024-05-17 16:00 | Outpatient (RCR) | payer OTHER ==
[2024-05-20] MEDS ORDERED: DOCU100C16 PO (14:43)
[2024-05-20] MEDS ORDERED: TORS20TA2 PO (14:43)
[2024-05-20] MEDS ORDERED: ELIQ5TAB PO (14:43)
[2024-05-20] MEDS ORDERED: GABA-1172 PO (14:43)
[2024-05-20] MEDS ORDERED: METO1TAB7 PO (14:43)
[2024-05-20] MEDS ORDERED: ATOR40TA75 PO (14:43)
[2024-05-20] MEDS ORDERED: METF-838 PO (14:43)
[2024-05-20] MEDS ORDERED: ACET-683 PO (14:43)
[2024-05-20] MEDS ORDERED: ATEN50TA2 PO (14:43)
[2024-05-20] MEDS ORDERED: PANT40TA29 PO (14:43)
== END 2024-05-25 ==
LOC: M PT 16:00
PROVIDERS: ATTEND Registered Nurse
DX: Z89.612 Acquired absence of left leg above knee (principal)

== ENCOUNTER 2024-05-20 13:31 | Emergency (ER) | payer MEDICARE, OTHER ==
[~2024-05-20] VITALS: Ht 157.5 cm; Wt 74.7 kg
[2024-05-20 14:02] LABS: VENOUS BASE EXCESS -14.6 (-2.0-2.0); VENOUS HCO3 10.9 MMOL/L (23.0-27.0); VENOUS O2 SATURATION 85.3 % (60.0-80.0); VENOUS PARTIAL PRESSURE CO2 23.7 mmHg (38.0-50.0); VENOUS PARTIAL PRESSURE O2 61.5 mmHg (30.0-50.0); VENOUS STANDARD HCO3 12.5 MMOL/L; VENOUS TOTAL CO2 11.6 MMOL/L (24.0-28.0)
[2024-05-20 14:12] LABS: BASO % 0.1 % (0.0-1.0); EOS % 0.4 % (0.0-3.0); HEMATOCRIT 13.7 % (42.0-52.0); LYMPH # 0.8 10^3/uL (1.5-5.0); LYMPH % 10.1 % (24.0-44.0); MEAN CORPUSCULAR HEMOGLOBIN 20.5 pg (27.0-33.0); MEAN CORPUSCULAR HGB CONC 25.5 g/dl (32.0-36.5); MEAN CORPUSCULAR VOLUME 80.1 fl (80.0-96.0); MONO % 13.1 % (2.0-8.0); NEUTROPHILS % 75.2 % (36.0-66.0); PLATELET COUNT, AUTOMATED 284 10^3/uL (150-450); RED BLOOD COUNT 1.71 10^6/uL (4.30-6.10); WHITE BLOOD COUNT 7.9 10^3/uL (4.0-10.0)
[2024-05-20 14:19] LABS: HEMOGLOBIN 3.5 g/dl (13.5-17.5)
[2024-05-20] MEDS: methylPREDNISolone 125MG 2ML VIAL IV ONE (14:22)
[2024-05-20 14:41] LABS: PARTIAL THROMBOPLASTIN TIME 46.2 SECONDS (24.8-34.2); PROTHROMBIN TIME 49.1 SECONDS (12.5-14.5)
[2024-05-20] MEDS ORDERED: PANT40TA29 PO (14:43)
[2024-05-20] MEDS ORDERED: DOCU100C16 PO (14:43)
[2024-05-20] MEDS ORDERED: ATEN50TA2 PO (14:43)
[2024-05-20] MEDS ORDERED: ATOR40TA75 PO (14:43)
[2024-05-20] MEDS ORDERED: TORS20TA2 PO (14:43)
[2024-05-20] MEDS ORDERED: ACET-683 PO (14:43)
[2024-05-20] MEDS ORDERED: METO1TAB7 PO (14:43)
[2024-05-20] MEDS ORDERED: GABA-1172 PO (14:43)
[2024-05-20] MEDS ORDERED: METF-838 PO (14:43)
[2024-05-20] MEDS ORDERED: ELIQ5TAB PO (14:43)
[2024-05-20 14:44] LABS: INR 5.5
[2024-05-20] MEDS ORDERED: HOME MED LIST COMPLETE! XX SCH (14:45)
[2024-05-20] MEDS: NS 0.9% IV STA (14:47)
[2024-05-20] MEDS: [UNRECOGNIZED DRUG - OTHER] IV STA (14:47)
[2024-05-20] MEDS: cefTRIAXone SOD 2 GM in DEXTROSE 5% (D5W) ADV/MINI-BAG 50 ML IV ONE (14:47)
[2024-05-20] MEDS: PANTOPRAZOLE 40MG VIAL IV ONE (14:47)
[2024-05-20 14:53] LABS: ETHYL ALCOHOL (ETHANOL) < 0.003 % (0.000-0.010)
[2024-05-20 15:22] LABS: ALBUMIN 2.6 G/DL (3.2-5.2); ALKALINE PHOSPHATASE 162 U/L (40-129); ALT/SGPT 846 U/L (7.0-40); AST/SGOT 1153 U/L (<34); BILIRUBIN,DIRECT 1.4 MG/DL (<0.4); BLOOD UREA NITROGEN 54 MG/DL (9-23); CALCIUM LEVEL 8.5 MG/DL (8.3-10.6); CARBON DIOXIDE LEVEL 12 MMOL/L (20-31); CHLORIDE LEVEL 102 MMOL/L (98-107); CREATININE FOR GFR 1.64 MG/DL (0.70-1.30); GLOMERULAR FILTRATION RATE 44.7 (>49); GLUCOSE, FASTING 158 MG/DL (74-106); POTASSIUM SERUM 5.1 MMOL/L (3.5-5.1); SODIUM LEVEL 134 MMOL/L (136-145); TOTAL PROTEIN 6.6 G/DL (5.7-8.2)
[2024-05-20 15:35] VITALS: BP 129/62; TEMP 96.2; O2SAT 100
[2024-05-20 15:50] VITALS: BP 119/56; TEMP 97.6; O2SAT 100
[2024-05-20] MEDS: FUROSEMIDE 40MG/4ML VIAL IV ONE (16:00)
[2024-05-20 16:35] VITALS: BP 131/58; TEMP 97.4; O2SAT 100
[2024-05-20 17:31] VITALS: BP 134/63; TEMP 97.9; O2SAT 100
[2024-05-20 17:33] VITALS: O2SAT 100
== END 2024-05-20 17:51 | disposition short-term general hospital (02) ==
LOC: M ED 13:31
DX: K72.90 Hepatic failure, unspecified without coma (principal); K92.2 Gastrointestinal hemorrhage, unspecified; E87.29 Other acidosis; J44.9 Chronic obstructive pulmonary disease, unspecified; I45.2 Bifascicular block; I48.91 Unspecified atrial fibrillation; E11.9 Type 2 diabetes mellitus without complications; I10 Essential (primary) hypertension; K21.9 Gastro-esophageal reflux disease without esophagitis; F17.210 Nicotine dependence, cigarettes, uncomplicated; F10.10 Alcohol abuse, uncomplicated; Z79.01 Long term (current) use of anticoagulants; Z79.1 Long term (current) use of non-steroidal anti-inflammatories (NSAID); Z79.84 Long term (current) use of oral hypoglycemic drugs; Z79.899 Other long term (current) drug therapy
CPT/HCPCS: 36430; 71045; 80048; 80076; 82077; 82803; 83605; 83880; 84436; 84443; 85025; 85610; 85730; 86850; 86900; 86901; 86920; 87040; 87486; 87581; 87633; 87798; 93005; 93041; 94760; 96365; 96366; 96375; 99285; J0696; J1940; J2470; J2919; P9016

== ENCOUNTER → 2024-06-07 | Outpatient (CLI) | payer OTHER ==
[~2024-06-07] MED LIST changes: +ACET-683 PO; +DOCU100C16 PO; +GABA-1172 PO; +METF-838 PO; +METO1TAB7 PO; +PANT40TA29 PO
[2024-06-07 15:30] LABS: BASO % 0.7 % (0.0-1.0); EOS # 0.2 10^3/uL (0.0-0.5); EOS % 3.3 % (0.0-3.0); HEMATOCRIT 31.8 % (42.0-52.0); HEMOGLOBIN 9.2 g/dl (13.5-17.5); LYMPH # 0.9 10^3/uL (1.5-5.0); MEAN CORPUSCULAR HGB CONC 28.9 g/dl (32.0-36.5); MEAN CORPUSCULAR VOLUME 86.4 fl (80.0-96.0); MONO # 0.7 10^3/uL (0.0-0.8); MONO % 14.7 % (2.0-8.0); NEUTROPHILS # 2.8 10^3/uL (1.5-8.5); NEUTROPHILS % 60.9 % (36.0-66.0); PLATELET COUNT, AUTOMATED 257 10^3/uL (150-450); RED BLOOD COUNT 3.68 10^6/uL (4.30-6.10); WHITE BLOOD COUNT 4.6 10^3/uL (4.0-10.0)
[2024-06-07 15:42] LABS: INR 1.02; PROTHROMBIN TIME 13.7 SECONDS (12.5-14.5)
[2024-06-07 15:57] LABS: IRON (FE) 22 UG/DL (65-175); TOTAL IRON BINDING CAPACITY 314 UG/DL (250-425)
[2024-06-07 15:58] LABS: ALBUMIN 2.7 G/DL (3.2-5.2); ALKALINE PHOSPHATASE 134 U/L (40-129); ALT/SGPT 24 U/L (7.0-40); AST/SGOT 25 U/L (<34); BILIRUBIN,TOTAL 0.8 MG/DL (0.3-1.2); BLOOD UREA NITROGEN 12 MG/DL (9-23); CALCIUM LEVEL 8.8 MG/DL (8.3-10.6); CARBON DIOXIDE LEVEL 31 MMOL/L (20-31); CHLORIDE LEVEL 104 MMOL/L (98-107); CREATININE FOR GFR 0.88 MG/DL (0.70-1.30); GLOMERULAR FILTRATION RATE > 60.0 (>49); GLUCOSE, FASTING 161 MG/DL (74-106); POTASSIUM SERUM 4.5 MMOL/L (3.5-5.1); SODIUM LEVEL 142 MMOL/L (136-145); TOTAL PROTEIN 7.1 G/DL (5.7-8.2)
[2024-06-07 16:00] LABS: FERRITIN 24.5 NG/ML (10.5-307.3)
== END ==
LOC: M LAB 14:46
PROVIDERS: ATTEND Registered Nurse
DX: D64.9 Anemia, unspecified (principal)

== ENCOUNTER 2024-06-23 15:17 | Outpatient (RCR) | payer OTHER | END 2024-06-25 | LOC: M PT 15:17 | PROVIDERS: ATTEND Registered Nurse | DX: Z89.612 Acquired absence of left leg above knee (principal) ==

== ENCOUNTER 2024-07-21 16:00 | Outpatient (RCR) | payer OTHER | END 2024-07-23 | LOC: M PT 16:00 | PROVIDERS: ATTEND Registered Nurse | DX: Z89.512 Acquired absence of left leg below knee (principal); R53.1 Weakness ==

== ENCOUNTER → 2024-07-21 | Outpatient (CLI) | payer OTHER ==
[2024-07-21 17:39] LABS: BASO % 0.3 % (0.0-1.0); EOS # 0.2 10^3/uL (0.0-0.5); EOS % 2.9 % (0.0-3.0); HEMATOCRIT 37.2 % (42.0-52.0); HEMOGLOBIN 11.7 g/dl (13.5-17.5); LYMPH # 1.4 10^3/uL (1.5-5.0); LYMPH % 23.7 % (24.0-44.0); MEAN CORPUSCULAR HEMOGLOBIN 28.5 pg (27.0-33.0); MEAN CORPUSCULAR HGB CONC 31.5 g/dl (32.0-36.5); MEAN CORPUSCULAR VOLUME 90.5 fl (80.0-96.0); MONO # 0.7 10^3/uL (0.0-0.8); MONO % 12.2 % (2.0-8.0); NEUTROPHILS # 3.5 10^3/uL (1.5-8.5); NEUTROPHILS % 60.6 % (36.0-66.0); PLATELET COUNT, AUTOMATED 231 10^3/uL (150-450); RED BLOOD COUNT 4.11 10^6/uL (4.30-6.10); WHITE BLOOD COUNT 5.8 10^3/uL (4.0-10.0)
[2024-07-21 18:04] LABS: TOTAL IRON BINDING CAPACITY 324 UG/DL (250-425)
[2024-07-21 18:05] LABS: ALBUMIN 3.4 G/DL (3.2-5.2); ALKALINE PHOSPHATASE 91 U/L (40-129); ALT/SGPT < 9 U/L (7.0-40); AST/SGOT 16 U/L (<34); BILIRUBIN,TOTAL 0.5 MG/DL (0.3-1.2); BLOOD UREA NITROGEN 19 MG/DL (9-23); CARBON DIOXIDE LEVEL 24 MMOL/L (20-31); CHLORIDE LEVEL 105 MMOL/L (98-107); CREATININE FOR GFR 1.29 MG/DL (0.70-1.30); GLUCOSE, FASTING 102 MG/DL (74-106); IRON (FE) 84 UG/DL (65-175); PERCENT SATURATION 25.9 % (19.7-50.0); POTASSIUM SERUM 3.6 MMOL/L (3.5-5.1); SODIUM LEVEL 140 MMOL/L (136-145); TOTAL PROTEIN 7.3 G/DL (5.7-8.2)
[2024-07-21 18:07] LABS: FERRITIN 30.9 NG/ML (10.5-307.3)
== END ==
LOC: M LAB 16:55
PROVIDERS: ATTEND Registered Nurse
DX: D64.9 Anemia, unspecified (principal)

== ENCOUNTER 2024-08-18 16:00 | Outpatient (RCR) | payer OTHER | END 2024-08-23 | LOC: M PT 16:00 | PROVIDERS: ATTEND Registered Nurse | DX: Z89.512 Acquired absence of left leg below knee (principal); R53.1 Weakness ==

== ENCOUNTER → 2024-09-22 | Outpatient (RCR) | payer OTHER | LOC: M PT 08-25 15:14 | PROVIDERS: ATTEND Registered Nurse | DX: Z89.512 Acquired absence of left leg below knee (principal); R53.1 Weakness ==

== ENCOUNTER → 2025-01-24 | Outpatient (CLI) | payer OTHER ==
[2025-01-24 10:28] LABS: BASO # 0.0 10^3/uL (0.0-0.2); BASO % 0.1 % (0.0-1.0); EOS # 0.1 10^3/uL (0.0-0.5); EOS % 1.4 % (0.0-3.0); LYMPH # 1.1 10^3/uL (1.5-5.0); LYMPH % 14.1 % (24.0-44.0); MONO # 0.9 10^3/uL (0.0-0.8); MONO % 11.9 % (2.0-8.0); NEUTROPHILS # 5.6 10^3/uL (1.5-8.5); NEUTROPHILS % 71.6 % (36.0-66.0); PLATELET COUNT, AUTOMATED 122 10^3/uL (150-450)
[2025-01-24 10:50] LABS: ESTIMATED AVERAGE GLUCOSE 128.0 MG/DL (60-110)
[2025-01-24 11:03] LABS: IRON (FE) 69 UG/DL (65-175); PERCENT SATURATION 23.3 % (19.7-50.0)
[2025-01-24 11:04] LABS: ALT/SGPT 18 U/L (7.0-40); AST/SGOT 14 U/L (<34); CALCIUM LEVEL 9.3 MG/DL (8.3-10.6); CARBON DIOXIDE LEVEL 29 MMOL/L (20-31); CHLORIDE LEVEL 101 MMOL/L (98-107); CHOLESTEROL LEVEL 125 MG/DL (<200); CHOLESTEROL RISK RATIO 2.09 (<5); CREATININE FOR GFR 0.78 MG/DL (0.70-1.30); GLOMERULAR FILTRATION RATE > 90.0 (>49); LDL CHOLESTEROL 54.2 MG/DL (<100); NON-HDL-C 65.2 MG/DL; POTASSIUM SERUM 4.0 MMOL/L (3.5-5.1); SODIUM LEVEL 138 MMOL/L (136-145); TRIGLYCERIDES LEVEL 55 MG/DL (<150)
== END ==
LOC: M LAB 09:56
PROVIDERS: ATTEND Registered Nurse
DX: D50.9 Iron deficiency anemia, unspecified (principal); E78.2 Mixed hyperlipidemia; E11.69 Type 2 diabetes mellitus with other specified complication